=== PATIENT | female | born 1940 | race Caucasian/White ===

== ENCOUNTER 2021-11-13 03:04 | Emergency (ER) | payer MEDICARE ==
[~2021-11-13] VITALS: Ht 160 cm; Wt 54.4 kg
[2021-11-13 03:04] VITALS: BP 147/67
--- NOTE | 2021-11-13 03:11 | NUR ---
PT RUD[facility] ALS. TAKEN TO BED 2
--- NOTE | 2021-11-13 03:35 | NUR ---
assumed patient care, here for chest pain. Pt post left hip surgery d/t a fall. Connected to continous cardiac monitoring, Dr. Angel at the bedside patient examined.
[2021-11-13 03:44] LABS: BASOPHILS # (AUTO) 0.2 K/uL (0.00-0.22); BASOPHILS % (AUTO) 1.6 % (0.0-2.0); EOSINOPHILS # (AUTO) 0.1 K/uL (0-0.4); EOSINOPHILS % (AUTO) 1.1 % (0.0-4.0); HEMATOCRIT 25.9 % (36-48); HEMOGLOBIN 8.8 g/dL (12.0-16.0); LYMPHOCYTES % (AUTO) 9.1 % (20.5-51.1); MEAN CORPUSCULAR HEMOGLOBIN 30 pg (27-31); MEAN CORPUSCULAR HGB CONC 34 g/dL (33-37); MEAN CORPUSCULAR VOLUME 87.2 fL (80-94); MONOCYTES # (AUTO) 0.7 K/uL (0.8-1.0); MONOCYTES % (AUTO) 5.8 % (1.7-9.3); NEUTROPHILS # (AUTO) 9.3 K/uL (1.8-7.7); NEUTROPHILS % (AUTO) 82.4 % (42.2-75.2); PLATELET COUNT (AUTO) 378 K/uL (140-450); RED BLOOD CELL COUNT(AUTO) 2.97 MIL/uL (4.20-5.40); WHITE BLOOD COUNT (AUTO) 11.3 K/uL (4.8-10.8)
[2021-11-13] MEDS: LORazepam 1 MG TAB PO ONE (03:58)
[2021-11-13 04:11] LABS: ALBUMIN 3.6 g/dL (3.4-5.0); ANION GAP 15.6 (8-16); ASPARTATE AMINOTRANSFERASE 24 U/L (15-37); CARBON DIOXIDE 22.5 mmol/L (21-32); CHLORIDE 105 mmol/L (98-107); CREATININE 0.9 mg/dL (0.6-1.3); GLUCOSE 124 mg/dL (74-106); LIPASE 83 U/L (73-393); POTASSIUM 4.1 mmol/L (3.5-5.1); SODIUM SERUM 139 mmol/L (136-145); TOTAL BILIRUBIN 1.2 mg/dL (0.0-1.0); UREA NITROGEN, BLOOD 21 mg/dL (7-18)
[2021-11-13] MEDS ORDERED: ATOR40TA PO (05:07)
[2021-11-13] MEDS ORDERED: CYCL-711 PO (05:11)
--- NOTE | 2021-11-13 05:15 | NUR ---
Patient cleared for dc with Dr. Calles, all blood work normal and chest xray. Receiving facility aware spoke with Tammy GARCIA.
--- NOTE | 2021-11-13 05:26 | NUR ---
Patient verbalizes she refused to go back to her recuperative care, per ED police department secretary awaiting for callback from [facility] regarding patient's placement. Patient asleep at this time
[2021-11-13] MEDS ORDERED: DOCU-2 PO (05:30)
[2021-11-13] MEDS ORDERED: LOV40I SUBQ (05:32)
[2021-11-13] MEDS: ASPIRIN 325 MG TAB PO ONE (05:36)
--- NOTE | 2021-11-13 06:12 | NUR ---
Patient given update on transfer, agreeable. Patient denies any chest pain at this time.
--- NOTE | 2021-11-13 06:13 | NUR ---
[facility]ORT AT BEDSIDE
--- NOTE | 2021-11-13 06:40 | NUR ---
report given to [facility] staff (ALS) [id number]
[2021-11-13 06:58] VITALS: BP 132/69
== END 2021-11-13 06:55 | disposition short-term general hospital (02) ==
LOC: MED 03:04
DX: R07.9 Chest pain, unspecified (principal); D64.9 Anemia, unspecified; M25.512 Pain in left shoulder; Z79.899 Other long term (current) drug therapy; Z98.890 Other specified postprocedural states
CPT/HCPCS: 36415; 71045; 80053; 83690; 84484; 85025; 99285; Q0092